=== PATIENT | female | born 2000 | race Caucasian/White ===

== ENCOUNTER 2022-06-29 11:57 | Emergency (ER) | payer SELFPAY ==
[2022-06-29] MEDS ORDERED: Ketorolac 30 MG/ML SDV IM STA (13:50)
== END 2022-06-29 14:17 | disposition home or self-care (01) ==
LOC: MW.ED 11:57
DX: S69.91XA Unspecified injury of right wrist, hand and finger(s), initial encounter (principal); Z91.038 Other insect allergy status; Z91.030 Bee allergy status; Z91.048 Other nonmedicinal substance allergy status; W00.0XXA Fall on same level due to ice and snow, initial encounter
CPT/HCPCS: 29125; 73110; 73130; 96372; 99283; J1885

== ENCOUNTER 2023-04-15 18:01 | Emergency (ER) | payer MEDICAID | END 2023-04-15 19:40 | disposition home or self-care (01) | LOC: MW.ED 18:01 | DX: S63.501A Unspecified sprain of right wrist, initial encounter (principal); Z91.030 Bee allergy status; Z91.048 Other nonmedicinal substance allergy status; Z91.038 Other insect allergy status | CPT/HCPCS: 73110-26-RT; 73110-RT; 99283 ==

== ENCOUNTER 2023-05-28 14:05 | Emergency (ER) | payer MEDICAID ==
[2023-05-28 15:15] LABS: CORONAVIRUS COVID-19 NAA NEGATIVE (NEGATIVE); INFLUENZA A NAA NEGATIVE (NEGATIVE); INFLUENZA B NAA NEGATIVE (NEGATIVE); RESPIRATORY SYNCYTIAL VIR NAA NEGATIVE (NEGATIVE)
== END 2023-05-28 14:47 | disposition home or self-care (01) ==
LOC: MW.ED 14:05
DX: J02.9 Acute pharyngitis, unspecified (principal); Z79.899 Other long term (current) drug therapy; Z91.030 Bee allergy status; Z91.048 Other nonmedicinal substance allergy status; Z91.038 Other insect allergy status; Z20.822 Contact with and (suspected) exposure to COVID-19
CPT/HCPCS: 0241U; 87651; 99283